=== PATIENT | female | born 1970 | race African-American/Black ===

== ENCOUNTER 2021-07-28 11:06 | Observation (INO) ==
[2021-07-28] MEDS ORDERED: AMPICILLIN/SULBACTAM 3,000 MG in SODIUM CHLORIDE 0.9% 100 ML IV STA (11:39)
[2021-07-28] MEDS ORDERED: ONDANSETRON 4 MG/2 ML VIAL IV STA (11:39)
[2021-07-28] MEDS ORDERED: HYDROmorphone 2 MG/1 ML VIAL IV STA (11:39)
[2021-07-28 12:23] LABS: Albumin 3.4 G/DL (3.4-5.0); Bilirubin,Total 0.5 MG/DL (0.20-1.00); Calcium 9.8 MG/DL (8.5-10.1); Potassium 2.9 MMOL/L (3.5-5.1); Total Protein 9.1 G/DL (6.4-8.2)
[2021-07-28 12:44] LABS: Basophils % 0.3 % (0.0-0.8); Eosinophils # 0.1 10*3/uL (0.0-0.87); Hematocrit 36.9 VOL% (35.7-47.0); Hemoglobin 11.8 GM/DL (12.0-16.0); Immature Granulocytes % 0.3 %; Immature Granulocytes Absolute 0.02 #; Lymphocytes % 29.5 % (21.3-54.2); Mean Platelet Volume 12.5 FL (9.6-12.0); Monocytes % 7.4 % (1.7-12.7); Neutrophils % 61.5 % (38.7-73.9); Platelet Count 298 T/CUMM (130-400); Red Blood Count 4.34 MC/CUMM (3.8-5.5); Red Cell Distribution Width 13.8 % (9.3-17.3); White Blood Count 6.8 T/CUMM (4-12)
[2021-07-28] MEDS ORDERED: POTASSIUM CHLORIDE RIDER 20 MEQ/100 ML PREMIX IV STA (12:48)
[2021-07-28] MEDS ORDERED: ONDANSETRON 4 MG/2 ML VIAL IV PRN (13:31)
[2021-07-28] MEDS ORDERED: ACETAMINOPHEN 325 MG TABLET PO PRN (13:31)
[2021-07-28] MEDS ORDERED: HYDROmorphone 2 MG/1 ML VIAL IV PRN ×2 (13:31)
[2021-07-28] MEDS ORDERED: ALBUTEROL/IPRATROPIUM 3 ML NEB RESP TX PRN (13:31)
[2021-07-28] MEDS ORDERED: KETOROLAC 30 MG/1 ML VIAL IV PRN (13:31)
[2021-07-28] MEDS ORDERED: BISACODYL 5 MG TABLET PO PRN (13:31)
[2021-07-28] MEDS: POTASSIUM CHLORIDE RIDER 10 MEQ/100 ML PREMIX IV SCH ×2 (13:32→15:37)
[2021-07-28] MEDS ORDERED: tiZANidine 4 MG TABLET PO PRN (13:33)
[2021-07-28 13:57] LABS: Bacteria,Urine Occasional /HPF (Few); Bilirubin,Urine Negative (Negative); Blood, Urine Negative (Negative); Glucose,Urine (UA) Negative (Negative); Hyaline Casts,Urine 4 /LPF (0-3); Ketones,Urine Negative (Negative); Mucus,Urine Occasional /LPF (Occasional); Nitrite,Urine Negative (Negative); Protein,Urine Negative; RBC,Urine 4 /HPF (0-4); Squamous Epithelial Cell,Urine Occasional /HPF (0-10); Urine Appearance Slightly Hazy (Clear); Urine Color Yellow (Yellow); Urine Specific Gravity 1.021 (1.001-1.035); Urine Urobilinogen < 2.0 EU/DL (0.2-1.0)
[2021-07-28] MEDS ORDERED: SCOPOLAMINE 1.5 MG PATCH TRANSDERM ONE (14:14)
[2021-07-28] MEDS ORDERED: FAMOTIDINE 20 MG/2 ML VIAL IV STA (14:15)
[2021-07-28] MEDS ORDERED: TISSUE ADHESIVE 1 EACH APPLICATOR TOP ONE (15:19)
[2021-07-28] MEDS: LACTATED RINGERS 1,000 ML IV SCH (15:25)
[2021-07-28] MEDS: OXYBUTYNIN 5 MG TABLET PO SCH ×2 (15:34→21:29)
[2021-07-28] MEDS: amLODIPine 5 MG TABLET PO SCH (21:29)
[2021-07-29] MEDS: LACTATED RINGERS 1,000 ML IV SCH ×3 (03:10→20:23)
[2021-07-29 06:25] LABS: Basophils % 0.3 % (0.0-0.8); Eosinophils # 0.1 10*3/uL (0.0-0.87); Hematocrit 36.2 VOL% (35.7-47.0); Hemoglobin 11.7 GM/DL (12.0-16.0); Immature Granulocytes % 0.3 %; Immature Granulocytes Absolute 0.02 #; Lymphocytes # 1.9 10*3/uL (1.4-4.0); Lymphocytes % 27.6 % (21.3-54.2); Mean Corpuscular HGB Conc 32.3 GM/DL (32-36); Mean Corpuscular Volume 86.2 FL (87-102); Mean Platelet Volume 13.6 FL (9.6-12.0); Monocytes % 8.3 % (1.7-12.7); Neutrophils % 62.5 % (38.7-73.9); Red Cell Distribution Width 14.3 % (9.3-17.3); White Blood Count 6.7 T/CUMM (4-12)
[2021-07-29 06:37] LABS: Platelet Count 194 T/CUMM (130-400)
[2021-07-29 07:57] LABS: Calcium 8.8 MG/DL (8.5-10.1); Osmolality,Calculated 274.5 MOS/KG (273-304)
[2021-07-29] MEDS: POTASSIUM CHLORIDE RIDER 10 MEQ/100 ML PREMIX IV SCH ×2 (08:32→10:36)
[2021-07-29] MEDS ORDERED: TISSUE ADHESIVE 1 EACH APPLICATOR TOP ONE (10:23)
[2021-07-29] MEDS ORDERED: ROCURONIUM 50 MG/5 ML VIAL IV ONE (10:49)
[2021-07-29] MEDS ORDERED: propofoL 200 MG/20 ML VIAL IV ONE ×2 (10:49→13:03)
[2021-07-29] MEDS ORDERED: SEVOFLURANE 1 UNIT/15 MINUTE INH ONE ×3 (10:49→13:11)
[2021-07-29] MEDS ORDERED: fentaNYL 100 MCG/2 ML VIAL ONE (10:49)
[2021-07-29] MEDS ORDERED: LIDOCAINE 2% 5 ML VIAL ONE (10:49)
[2021-07-29] MEDS ORDERED: MIDAZOLAM 2 MG/2 ML VIAL ONE (11:31)
[2021-07-29] MEDS ORDERED: ESMOLOL 100 MG/10 ML VIAL IV ONE (11:33)
[2021-07-29] MEDS ORDERED: PHENYLEPHRINE 1 MG/10 ML SYRINGE IV ONE (12:25)
[2021-07-29] MEDS ORDERED: NEOSTIGMINE 10 MG/10 ML VIAL ONE (12:26)
[2021-07-29] MEDS ORDERED: LACTATED RINGERS 1,000 ML IV ONE (12:43)
[2021-07-29] MEDS ORDERED: HYDROmorphone 2 MG/1 ML VIAL ONE (13:20)
[2021-07-29] MEDS ORDERED: MEPERIDINE 25 MG/1 ML VIAL IV PRN (13:30)
[2021-07-29] MEDS ORDERED: ONDANSETRON 4 MG/2 ML VIAL IV PRN (13:30)
[2021-07-29] MEDS ORDERED: diphenhydrAMINE 50 MG/1 ML VIAL IV PRN (13:30)
[2021-07-29] MEDS ORDERED: HYDROmorphone 2 MG/1 ML VIAL IV PRN (13:30)
[2021-07-29] MEDS ORDERED: PROMETHAZINE INJ 25 MG in SODIUM CHLORIDE 0.9% 50 ML IV PRN (13:30)
[2021-07-29] MEDS: OXYBUTYNIN 5 MG TABLET PO SCH ×3 (15:44→20:22)
[2021-07-29] MEDS: LEVOTHYROXINE 25 MCG TABLET PO SCH (18:14)
[2021-07-29] MEDS: hydroCHLOROthiazide 25 MG TABLET PO SCH (18:14)
[2021-07-29] MEDS: PANTOPRAZOLE 40 MG TABLET PO SCH (18:14)
[2021-07-29] MEDS: amLODIPine 5 MG TABLET PO SCH (20:22)
[2021-07-29] MEDS ORDERED: LORATADINE 10 MG TABLET PO PRN (22:35)
[2021-07-30] MEDS: LACTATED RINGERS 1,000 ML IV SCH ×2 (03:07→16:03)
[2021-07-30 07:16] LABS: Basophils % 0.1 % (0.0-0.8); Hematocrit 31.6 VOL% (35.7-47.0); Hemoglobin 10.1 GM/DL (12.0-16.0); Immature Granulocytes % 0.6 %; Immature Granulocytes Absolute 0.07 #; Lymphocytes # 1.5 10*3/uL (1.4-4.0); Mean Corpuscular Volume 85.9 FL (87-102); Mean Platelet Volume 12.1 FL (9.6-12.0); Monocytes % 5.4 % (1.7-12.7); Neutrophils % 81.9 % (38.7-73.9); Platelet Count 257 T/CUMM (130-400); Red Blood Count 3.68 MC/CUMM (3.8-5.5); White Blood Count 12.5 T/CUMM (4-12)
[2021-07-30 07:38] LABS: Albumin 2.8 G/DL (3.4-5.0); Bilirubin,Total 0.4 MG/DL (0.20-1.00); Calcium 8.9 MG/DL (8.5-10.1); Osmolality,Calculated 273.7 MOS/KG (273-304); Potassium 3.4 MMOL/L (3.5-5.1); Total Protein 7.4 G/DL (6.4-8.2)
[2021-07-30] MEDS: hydroCHLOROthiazide 25 MG TABLET PO SCH (09:28)
[2021-07-30] MEDS: PANTOPRAZOLE 40 MG TABLET PO SCH (09:28)
[2021-07-30] MEDS: LEVOTHYROXINE 25 MCG TABLET PO SCH (09:28)
[2021-07-30] MEDS: OXYBUTYNIN 5 MG TABLET PO SCH ×2 (09:28→16:03)
[2021-07-30 11:59] VITALS: BP 132/68
== END 2021-07-30 15:25 | disposition home or self-care (01) ==
LOC: N.ED 11:06 → N.EDINP 11:06 → N.4E 18:26
PROVIDERS: ADMIT Student in an Organized Health Care Education/Training Program; ATTEND Student in an Organized Health Care Education/Training Program
PROC: LAPCHOL (2021-07-29 11:27)